=== PATIENT | female | born 1950 | race Caucasian/White ===

== ENCOUNTER → 2019-03-20 | Outpatient (CLI) | payer MEDICARE ==
--- NOTE | 2019-03-20 13:55 | Diagnostic Imaging Report ---
History:Mid back pain. Comparison studies: None Technique: Sagittal, axial coronal T2, sagittal T1 and sagittal STIR. Findings: Curvature: Mild increased kyphotic and dextro thoracic curvature. Paraspinal soft tissues: No signal abnormalities. Spinal cord: The spinal cord is normal in size and signal intensity through the tip of the conus at L1-L2. Vertebrae: No compression fracture. No infection. Minimal degenerative endplate edema at T9-T10 and T10-T11. Small shallow Schmorl's nodes present along the endplates from T6 through L1. Incidental small T1 hyperintense T12 vertebral body hemangioma. Degenerative changes: The T5-T6 disc space is obliterated and the disc spaces partially fused. Disc degeneration otherwise mild from T1 to T5, moderate from T6 to T11 and mild from T11 to L2. Small left central disc protrusion at T6-T7, small asymmetric left disc bulge at T9-T10 and small disc bulge at T10-T11 indent the thecal sac without significant canal stenosis. Mild multilevel facet arthrosis. Mild foraminal stenosis bilaterally at T9-T10 and at T10-T11. Moderate degenerative changes in the partially imaged lower cervical spine as seen on the survey sequence with moderately degenerated disks and moderate to severe canal stenosis at C5-C6 and at C6-C7. Cannot further adequate evaluate on this exam. Incidental findings: Small left peripelvic renal cysts. IMPRESSION: 1. No thoracic compression fracture. 2. Moderate multilevel disc degeneration with mild endplate edema at T9-T10 and T10-T11. No significant thoracic canal or foraminal stenosis. 3. Moderate to severe degenerative canal stenosis at the partially imaged C5-C6 and C6-C7 levels. Dedicated cervical spine MRI may further evaluate. Signed by: Dr. Luis Miguel Ling M.D. on 03/20/2019 1:52 PM
== END ==
LOC: MRI 08:27
PROVIDERS: ATTEND Family Medicine
DX: S23.3XXA Sprain of ligaments of thoracic spine, initial encounter (principal)
CPT/HCPCS: 72146